=== PATIENT | female | born 1955 | race Caucasian/White ===

== ENCOUNTER 2019-06-07 08:25 | Emergency (ER) | payer OTHER ==
[2019-06-07 09:04] VITALS: TEMP 98
[2019-06-07] MEDS ORDERED: HYDROcodone/APAP 10-325MG 1 EACH TAB PO ONE (09:11)
--- NOTE | 2019-06-07 09:13 | ED ---
General Adult HPI - General Chief complaint: Neck Pain/Injury Stated complaint: Mental Health Time Seen by Provider: 06/07/19 08:48 Source: patient, EMS, RN notes reviewed Mode of arrival: EMS Limitations: no limitations - History of Present Illness Initial comments: 63-year-old female presented to the emergency room today with a chief complaint of needing pain medication. Patient does admit that she has history of chronic back pain. She had 2 surgeries in the past. She states that she is on Eden that is given to her by her family doctor. She states that her condition was told by her neighbor. She states that the police were at her apartment today and did speak with her neighbors well. She was advised come here to the emergency room to see if she'll get pain medication. Patient also admits that she has some pain to her legs. She states that she had pain similar to this in the past when she potassium was low. She took potassium supplements but is no longer on this anymore. Patient denies any other complaints or symptoms. Patient denies any recent fever, chills, shortness of breath, chest pain, back pain, abdominal pain, nausea or vomiting, numbness or tingling, headaches or visual changes, or any other complaints. - Related Data Home Medications Medication Instructions Recorded Confirmed Gabapentin 600 mg PO TID 06/07/19 06/07/19 Hydrocodone/Acetaminophen [Eden 1 tab PO TID 06/07/19 06/07/19 10-325] Multivitamins, Thera [Multivitamin 1 tab PO DAILY 06/07/19 06/07/19 (formulary)] levETIRAcetam [Keppra] 250 mg PO TID 06/07/19 06/07/19 Allergies Allergy/AdvReac Type Severity Reaction Status Date / Time naproxen Allergy Rash/Hives Verified 06/07/19 09:05 tramadol [From Ultram] Allergy Rash/Hives Verified 06/07/19 09:05 Review of Systems ROS Statement: Those systems with pertinent positive or pertinent negative responses have been documented in the HPI. ROS Other: All systems not noted in ROS Statement are negative. Past Medical History Past Medical History: Osteoarthritis (OA) Additional Past Medical History / Comment(s): neck pain History of Any Multi-Drug Resistant Organisms: None Reported Additional Past Surgical History / Comment(s): neck surgery Past Psychological History: Depression Smoking Status: Former smoker Past Alcohol Use History: None Reported Past Drug Use History: None Reported General Exam - General Exam Comments Initial Comments: General: The patient is awake and alert, in no distress, and does not appear acutely ill. Eye: There is normal conjunctiva bilaterally. No signs of icterus. Ears, nose, mouth and throat: There are moist mucous membranes and no oral l esions. Neck: The neck is supple, there is no tenderness or JVD. Cardiovascular: There is a regular rate and rhythm. No murmur, rub or gallop is appreciated. Respiratory: Lungs are clear to auscultation, respirations are non-labored, breath sounds are equal. No wheezes, stridor, rales, or rhonchi. Musculoskeletal: Normal ROM, no tenderness. Strength 5/5. Sensation intact. Neurological: A&O x 3. CN II-XII intact, There are no obvious motor or sensory deficits. Coordination appears grossly intact. Speech is normal. Skin: Skin is warm and dry and no rashes or lesions are noted. Psychiatric: Cooperative, appropriate mood & affect, normal judgment. Limitations: no limitations Course Vital Signs 06/07/19 06/07/19 08:35 09:45 Temperature 98.0 F Pulse Rate 65 56 L Respiratory 18 20 Rate Blood Pressure 137/98 133/91 O2 Sat by Pulse 98 99 Oximetry Medical Decision Making - Medical Decision Making Patient's labs been reviewed. Her potassium is normal. At this time the patient is advised that she does need follow-up with family physician for further prescription for pain medication patient states understanding and is agreement. Patient was given one Eden here in the ER. Patient will be discharged home. - Lab Data Result diagrams: 06/07/19 09:45 06/07/19 09:45 Lab Results 06/07/19 06/07/19 Range/Units 09:45 09:45 WBC 7.0 (3.8-10.6) k/uL RBC 3.81 (3.80-5.40) m/uL Hgb 12.4 (11.4-16.0) gm/dL Hct 36.8 (34.0-46.0) % MCV 96.5 (80.0-100.0) fL MCH 32.4 (25.0-35.0) pg MCHC 33.6 (31.0-37.0) g/dL RDW 14.3 (11.5-15.5) % Plt Count 361 (150-450) k/uL Neutrophils % 68 % Lymphocytes % 21 % Monocytes % 7 % Eosinophils % 1 % Basophils % 0 % Neutrophils # 4.7 (1.3-7.7) k/uL Lymphocytes # 1.5 (1.0-4.8) k/uL Monocytes # 0.5 (0-1.0) k/uL Eosinophils # 0.1 (0-0.7) k/uL Basophils # 0.0 (0-0.2) k/uL Sodium 136 L (137-145) mmol/L Potassium 4.8 (3.5-5.1) mmol/L Chloride 99 (98-107) mmol/L Carbon Dioxide 28 (22-30) mmol/L Anion Gap 9 mmol/L BUN 13 (7-17) mg/dL Creatinine 0.67 (0.52-1.04) mg/dL Est GFR (CKD-EPI)AfAm >90 (>60 ml/min/1.73 sqM) Est GFR (CKD-EPI)NonAf >90 (>60 ml/min/1.73 sqM) Glucose 110 H (74-99) mg/dL Calcium 10.2 (8.4-10.2) mg/dL Disposition Clinical Impression: Chronic neck pain Disposition: HOME SELF-CARE Condition: Good Instructions (If sedation given, give patient instructions): Chronic Pain (ED) Additional Instructions: Please follow-up with family doctor over the next 2 days for further pain medications. Return here to the emergency room for any symptoms increase or worsen or for any other concerns. Is patient prescribed a controlled substance at d/c from ED?: No Referrals: Dallin Jarquin MD [Primary Care Provider] - 1-2 days Time of Disposition: 11:03
[2019-06-07 09:55] VITALS: BP 133/91; PULSE 56; RESP 20
[2019-06-07 10:06] LABS: Basophils % (A) 0 %; Eosinophils # (A) 0.1 k/uL (0-0.7); Eosinophils % (A) 1 %; HCT 36.8 % (34.0-46.0); HGB 12.4 gm/dL (11.4-16.0); Lymphocytes # (A) 1.5 k/uL (1.0-4.8); Lymphocytes % (A) 21 %; MCH 32.4 pg (25.0-35.0); MCHC 33.6 g/dL (31.0-37.0); MCV 96.5 fL (80.0-100.0); Mean Platelet Volume 6.7; Monocytes # (A) 0.5 k/uL (0-1.0); Monocytes % (A) 7 %; Neutrophils # (A) 4.7 k/uL (1.3-7.7); Neutrophils % (A) 68 %; Platelet Count 361 k/uL (150-450); RBC 3.81 m/uL (3.80-5.40); RDW 14.3 % (11.5-15.5)
[2019-06-07 10:16] LABS: African American GFR (CKD) >90 (>60 ml/min/1.73 sqM); Anion Gap 9 mmol/L; Blood Urea Nitrogen 13 mg/dL (7-17); Calcium 10.2 mg/dL (8.4-10.2); Carbon Dioxide 28 mmol/L (22-30); Chloride 99 mmol/L (98-107); Glucose 110 mg/dL (74-99); Potassium 4.8 mmol/L (3.5-5.1); Sodium 136 mmol/L (137-145)
[2019-06-07 11:20] LABS: Appearance,Urine Clear (Clear); Bacteria,Urine Rare /hpf; Bilirubin,Urine Negative (Negative); Blood,Urine Negative (Negative); Color,Urine Yellow; Glucose,Urine (UA) Negative (Negative); Ketones,Urine Negative (Negative); Leukocyte Esterase,Urine Small (Negative); Mucus,Urine Rare /hpf; Nitrite,Urine Negative (Negative); Protein,Urine Negative (Negative); RBC,Urine 1 /hpf (0-5); Specific Gravity,Urine 1.011 (1.001-1.035); Squamous Epithelial Cell,Urine 1 /hpf (0-4); Urobilinogen,Urine <2.0 mg/dL (<2.0); WBC,Urine 2 /hpf (0-5)
[2019-06-07 11:22] LABS: Cocaine Screen,Urine Not Detected (NotDetected); Opiate Screen,Urine Detected (NotDetected); Phencyclidine Screen,Urine Not Detected (NotDetected); Urn Cannabinoid Scrn Not Detected (NotDetected)
[2019-06-07 11:23] LABS: Amphetamine Screen,Urine Not Detected (NotDetected); Barbiturate Screen,Urine Not Detected (NotDetected); Benzodiazepines Screen,Urine Not Detected (NotDetected); Methadone Screen, Urine Not Detected (NotDetected); Oxycodone Screen, Urine Not Detected (NotDetected); Tricyclic Antidepressant,Urine Not Detected (NotDetected)
== END 2019-06-07 11:40 | disposition home or self-care (01) ==
LOC: EC 08:25
DX: G89.29 Other chronic pain (principal); M54.2 Cervicalgia; Z79.899 Other long term (current) drug therapy; Z88.5 Allergy status to narcotic agent; Z88.6 Allergy status to analgesic agent; Z87.891 Personal history of nicotine dependence
CPT/HCPCS: 36415; 80048; 80306; 81001; 85025; 93005; 99283; 99284

== ENCOUNTER 2019-06-07 21:15 | Emergency (ER) | payer OTHER ==
[2019-06-07] MEDS ORDERED: IBUPROFEN 600 MG TAB PO STA (21:36)
[2019-06-07] MEDS ORDERED: ACETAMINOPHEN TAB 325 MG TAB PO STA (21:39)
--- NOTE | 2019-06-07 21:41 | ED ---
Lower Extremity Injury HPI - General Chief Complaint: Extremity Injury, Lower Stated Complaint: recheck - leg pain Time Seen by Provider: 06/07/19 21:25 Source: patient Mode of arrival: ambulatory Limitations: no limitations - History of Present Illness Initial Comments: 63-year-old female patient presents to the emergency department today for evaluation of leg pain and cramping. Patient was seen and evaluated here this morning for mental health. She was discharged home was unable to find a ride so she has been walking around the hospital since. Patient states her legs hurt due to her walking. She does report she has been taking [id number] potassium supplements because her doctor told her her potassium was low. She believes this may be contributing to her leg pain. She denies any leg swelling. Denies any known injury. Patient denies any recent rash, fever, chills, shortness breath, abdominal pain, nausea, vomiting, diarrhea, constipation, back pain, numbness, tingling, dizziness, weakness, hematuria, dysuria, urinary urgency, urinary frequency, headache, visual changes, or any other complaints. - Related Data Home Medications Medication Instructions Recorded Confirmed Gabapentin 600 mg PO TID 06/07/19 06/07/19 Hydrocodone/Acetaminophen [[place] 1 tab PO TID 06/07/19 06/07/19 10-325] Multivitamins, Thera [Multivitamin 1 tab PO DAILY 06/07/19 06/07/19 (formulary)] levETIRAcetam [Keppra] 250 mg PO TID 06/07/19 06/07/19 Allergies Allergy/AdvReac Type Severity Reaction Status Date / Time naproxen Allergy Rash/Hives Verified 06/07/19 21:23 tramadol [From Ultram] Allergy Rash/Hives Verified 06/07/19 21:23 Review of Systems ROS Statement: Those systems with pertinent positive or pertinent negative responses have been documented in the HPI. ROS Other: All systems not noted in ROS Statement are negative. Past Medical History Past Medical History: Osteoarthritis (OA) Additional Past Medical History / Comment(s): neck pain History of Any Multi-Drug Resistant Organisms: None Reported Additional Past Surgical History / Comment(s): neck surgery Past Psychological History: Depression Smoking Status: Former smoker Past Alcohol Use History: None Reported Past Drug Use History: None Reported General Exam Limitations: no limitations General appearance: alert, in no apparent distress, other (Physical well- developed, well-nourished adult female patient in no acute distress. Vital signs upon presentation are temperature 97.8F, pulse 78, respirations 18, blood pressure 122/86, pulse ox 99% on room air.) Respiratory exam: Present: normal lung sounds bilaterally. Absent: respiratory distress, wheezes, rales, rhonchi, stridor Cardiovascular Exam: Present: regular rate, normal rhythm, normal heart sounds. Absent: systolic murmur, diastolic murmur, rubs, gallop, clicks Extremities exam: Present: normal inspection, full ROM, normal capillary refill, other (Lower extremities are pink, warm, dry. Cap refills less than 3 seconds. Pedal and posttibial pulses are 2+ and equal bilaterally. There is no swe lling.). Absent: tenderness, pedal edema, joint swelling, calf tenderness Neurological exam: Present: alert, oriented X3, CN II-XII intact, normal gait Psychiatric exam: Present: normal affect, normal mood Skin exam: Present: warm, dry, intact, normal color. Absent: rash Course Vital Signs 06/07/19 06/07/19 21:19 21:48 Temperature 97.8 F 98 F Pulse Rate 78 77 Respiratory 18 16 Rate Blood Pressure 122/86 125/84 O2 Sat by Pulse 99 100 Oximetry Medical Decision Making - Medical Decision Making 63-year-old female patient presented to the emergency department today for evaluation of bilateral leg pain. Physical examination is unremarkable. Patient is concerned her potassium may be low causing leg pain. Labs reviewed from this morning and potassium was normal at 4.8. Patient be given Tylenol and discharged home to follow-up with her primary care physician for recheck. Return parameters were discussed in detail. She verbalizes understanding and agrees with this plan. Disposition Clinical Impression: Leg pain Disposition: HOME SELF-CARE Condition: Good Instructions (If sedation given, give patient instructions): Leg Pain (ED) Additional Instructions: Increase fluids. Rest. Take Tylenol Motrin for pain control. I'll pursue primary care physician for recheck in 1-2 days. Return to the emergency department immediately for any new, worsening, or concerning symptom. Is patient prescribed a controlled substance at d/c from ED?: No Referrals: Dallin Jarquin MD [Primary Care Provider] - 1-2 days Time of Disposition: 21:40
[2019-06-07 21:49] VITALS: BP 125/84; PULSE 77; RESP 16; TEMP 98
== END 2019-06-07 21:52 | disposition home or self-care (01) ==
LOC: EC 21:15
DX: M79.605 Pain in left leg (principal); M79.604 Pain in right leg; M19.90 Unspecified osteoarthritis, unspecified site; Z87.891 Personal history of nicotine dependence; Z79.891 Long term (current) use of opiate analgesic; Z79.899 Other long term (current) drug therapy; Z88.5 Allergy status to narcotic agent; Z88.6 Allergy status to analgesic agent; Z53.8 Procedure and treatment not carried out for other reasons
CPT/HCPCS: 99283

== ENCOUNTER 2019-06-12 17:41 | Emergency (ER) | payer OTHER ==
[2019-06-12 17:57] VITALS: RESP 18
[2019-06-12] MEDS ORDERED: levETIRAcetam 250 MG TAB PO STA (18:32)
[2019-06-12] MEDS ORDERED: HYDROcodone/APAP 5-325MG 1 EACH TAB PO STA (18:32)
[2019-06-12] MEDS ORDERED: ACET/COD 300 MG/30 MG STARTER PACK 6 TAB BTL PO STA (18:36)
--- NOTE | 2019-06-12 18:36 | ED ---
General Adult HPI - General Chief complaint: Psychiatric Symptoms Stated complaint: MENTAL HEALTH Time Seen by Provider: 06/12/19 18:01 Source: patient, EMS Mode of arrival: EMS Limitations: altered mental status, physical limitation - History of Present Illness Initial comments: 63-year-old female patient with past medical history significant for chronic leg, neck, and back pain. Patient states that she was supposed to get her Mccarr and gabapentin refilled on 05/27/2019 however her physician of her symptoms medication to the pharmacy. Patient states she has been having increasing pain since then. [place] DNR to call an ambulance for her. Patient states that she just needs pain medication. S he denies any new symptoms, states she has had this pain for many years. She has been taking the pain medications since 2005. She states that she is also out of her Keppra. She denies any seizure activity. Patient denies any recent rash, fever, chills, shortness breath, chest pain, abdominal pain, nausea, vomiting, diarrhea, constipation, back pain, numbness, tingling, dizziness, weakness, hematuria, dysuria, urinary urgency, urinary frequency, headache, visual changes, or any other complaints. She denies any suicidal or homicidal ideation. - Related Data Home Medications Medication Instructions Recorded Confirmed Hydrocodone/Acetaminophen [Mccarr 1 tab PO Q4-6H PRN 06/07/19 06/12/19 10-325] levETIRAcetam [Keppra] 250 mg PO TID 06/07/19 06/12/19 Albuterol Inhaler [Ventolin Hfa 1 - 2 puff INHALATION RT-Q4H PRN 06/12/19 06/12/19 Inhaler] Gabapentin [Neurontin] 300 mg PO TID 06/12/19 06/12/19 Omeprazole [PriLOSEC] 20 mg PO DAILY 06/12/19 06/12/19 clonazePAM [KlonoPIN] 0.5 mg PO TID 06/12/19 06/12/19 Previous Rx's Medication Instructions Recorded levETIRAcetam [Keppra] 250 mg PO TID #90 tablet 06/12/19 Allergies Allergy/AdvReac Type Severity Reaction Status Date / Time naproxen Allergy Rash/Hives Verified 06/12/19 18:20 tramadol [From Ultram] Allergy Rash/Hives Verified 06/12/19 18:20 Review of Systems ROS Statement: Those systems with pertinent positive or pertinent negative responses have been documented in the HPI. ROS Other: All systems not noted in ROS Statement are negative. Past Medical History Past Medical History: Osteoarthritis (OA) Additional Past Medical History / Comment(s): neck pain History of Any Multi-Drug Resistant Organisms: None Reported Additional Past Surgical History / Comment(s): neck surgery Past Psychological History: Depression Smoking Status: Former smoker Past Alcohol Use History: None Reported Past Drug Use History: None Reported General Exam Limitations: altered mental status, physical limitation General appearance: alert, in no apparent distress, other (This is a well- developed, well-nourished adult female patient in no acute distress. Vital signs upon presentation are temperature 98.7F, pulse 62, respirations 18, blood pressure 137/80, pulse ox 99% on room air.) Eye exam: Present: normal appearance, PERRL, EOMI. Absent: scleral icterus, conjunctival injection, periorbital swelling ENT exam: Present: normal exam, normal oropharynx, mucous membranes moist Respiratory exam: Present: normal lung sounds bilaterally. Absent: respiratory distress, wheezes, rales, rhonchi, stridor Cardiovascular Exam: Present: regular rate, normal rhythm, normal heart sounds. Absent: systolic murmur, diastolic murmur, rubs, gallop, clicks GI/Abdominal exam: Present: soft, normal bowel sounds. Absent: distended, tenderness, guarding, rebound, rigid Neurological exam: Present: alert, oriented X3, CN II-XII intact Psychiatric exam: Present: normal affect, normal mood Skin exam: Present: warm, dry, intact, normal color. Absent: rash Course Vital Signs 06/12/19 17:54 Temperature 98.7 F Pulse Rate 62 Respiratory 18 Rate Blood Pressure 137/80 O2 Sat by Pulse 99 Oximetry Medical Decision Making - Medical Decision Making 63-year-old female patient presents to the emergency department today for evaluation of increased pain to her neck, back, legs. Patient states this is chronic pain and she's been out of her medication since the beginning of the month. Patient states that she is here seeking pain medication. She will be given a dose of pain medication here in the emergency department. A starter pack for Tylenol with codeine. She is instructed to use these sparingly. She will be given a prescription refill of her Keppra. She is instructed to follow- up with her primary care physician for recheck as soon as possible. She is ad vised she will receive no further pain medications from the emergency department for chronic pain. She verbalizes understanding and agrees with this plan. Disposition Clinical Impression: Neck pain, Leg pain, Drug-seeking behavior Disposition: HOME SELF-CARE Condition: Good Instructions (If sedation given, give patient instructions): Chronic Pain (ED) Additional Instructions: Follow-up with your primary care physician for refills of your medications. Return to the emergency department immediately for any new, worsening, or concerning symptoms. Prescriptions: levETIRAcetam [Keppra] 250 mg PO TID #90 tablet Is patient prescribed a controlled substance at d/c from ED?: No Referrals: Dallin Jarquin MD [Primary Care Provider] - 1-2 days Time of Disposition: 18:35
[2019-06-12 18:56] VITALS: BP 127/63; PULSE 63; TEMP 98.2
== END 2019-06-12 19:08 | disposition home or self-care (01) ==
LOC: EC 17:41
DX: M54.2 Cervicalgia (principal); M79.606 Pain in leg, unspecified; G89.29 Other chronic pain; Z76.5 Malingerer [conscious simulation]; F32.9 Major depressive disorder, single episode, unspecified; Z79.899 Other long term (current) drug therapy; Z88.5 Allergy status to narcotic agent; Z88.6 Allergy status to analgesic agent; Z87.891 Personal history of nicotine dependence
CPT/HCPCS: 82075; 99283

== ENCOUNTER 2019-06-13 13:42 | Emergency (ER) | payer OTHER ==
[2019-06-13 13:54] VITALS: RESP 18
--- NOTE | 2019-06-13 15:12 | ED ---
Psych HPI - General Chief Complaint: Psychiatric Symptoms Stated Complaint: Mental health Time Seen by Provider: 06/13/19 13:58 Source: patient, police, RN notes reviewed, old records reviewed Mode of arrival: ambulatory - History of Present Illness Initial Comments: This is a 61-year-old female who is brought in the ER for evaluation. Patient's brought in the ER for evaluation of psychiatric illness. At this point patient is difficult historian. Patient's brought in by PD petitioning for psychiatric evaluation secondary to unsafe living condition inability take care of herself. MD Complaint: altered mental status, other (Psychotic) -: unknown Associated Psychiatric Symptoms: delusions History of same: Yes Quality: constant, getting worse Context: not taking psychiatric medications, significant life stressor Associated Symptoms: denies other symptoms Treatments Prior to Arrival: placed on mental health hold If Self Harm: has plan - Related Data Home Medications Medication Instructions Recorded Confirmed Hydrocodone/Acetaminophen [Shirley 1 tab PO Q4-6H PRN 06/07/19 06/13/19 10-325] levETIRAcetam [Keppra] 250 mg PO TID 06/07/19 06/13/19 Albuterol Inhaler [Ventolin Hfa 1 - 2 puff INHALATION RT-Q4H PRN 06/12/19 06/13/19 Inhaler] Gabapentin [Neurontin] 300 mg PO TID 06/12/19 06/13/19 Omeprazole [PriLOSEC] 20 mg PO DAILY 06/12/19 06/13/19 clonazePAM [KlonoPIN] 0.5 mg PO TID 06/12/19 06/13/19 Previous Rx's Medication Instructions Recorded levETIRAcetam [Keppra] 250 mg PO TID #90 tablet 06/12/19 Allergies Allergy/AdvReac Type Severity Reaction Status Date / Time naproxen Allergy Rash/Hives Verified 06/13/19 13:57 tramadol [From Ultram] Allergy Rash/Hives Verified 06/13/19 13:57 Review of Systems ROS Statement: Those systems with pertinent positive or pertinent negative responses have been documented in the HPI. ROS Other: All systems not noted in ROS Statement are negative. Past Medical History Past Medical History: Osteoarthritis (OA) Additional Past Medical History / Comment(s): neck pain History of Any Multi-Drug Resistant Organisms: None Reported Additional Past Surgical History / Comment(s): neck surgery Past Psychological History: Depression Smoking Status: Former smoker Past Alcohol Use History: None Reported Past Drug Use History: None Reported General Exam Limitations: no limitations General appearance: alert, in no apparent distress Head exam: Present: atraumatic, normocephalic, normal inspection Eye exam: Present: normal appearance, PERRL, EOMI. Absent: scleral icterus, conjunctival injection, periorbital swelling ENT exam: Present: normal exam, mucous membranes moist Neck exam: Present: normal inspection. Absent: tenderness, meningismus, lymphadenopathy Respiratory exam: Present: normal lung sounds bilaterally. Absent: respiratory distress, wheezes, rales, rhonchi, stridor Cardiovascular Exam: Present: regular rate, normal rhythm, normal heart sounds. Absent: systolic murmur, diastolic murmur, rubs, gallop, clicks GI/Abdominal exam: Present: soft, normal bowel sounds. Absent: distended, tenderness, guarding, rebound, rigid Extremities exam: Present: normal inspection, full ROM, normal capillary refill. Absent: tenderness, pedal edema, joint swelling, calf tenderness Back exam: Present: normal inspection Neurological exam: Present: alert, oriented X3, CN II-XII intact Psychiatric exam: Present: normal affect, normal mood Skin exam: Present: warm, dry, intact, normal color. Absent: rash Course Vital Signs 06/13/19 06/13/19 13:52 16:32 Temperature 98.0 F 98.2 F Pulse Rate 60 61 Respiratory 18 18 Rate Blood Pressure 112/72 103/67 O2 Sat by Pulse 99 100 Oximetry - Reevaluation(s) Reevaluation #1: 06/13/19 15:36 Medical clear for psychiatric evaluation Medical Decision Making - Medical Decision Making 61 female the ER for evaluation. Patient will be admitted for psychiatric evaluation and management acute psychosis Disposition Clinical Impression: Drug-induced psychotic disorder, Acute psychosis, Psychosis Disposition: TRANSFER TO PSYCH HOSP/UNIT Condition: Fair Is patient prescribed a controlled substance at d/c from ED?: No Referrals: Dallin Jarquin MD [Primary Care Provider] - 1-2 days
[2019-06-13 19:25] LABS: Amphetamine Screen,Urine Not Detected (NotDetected); Barbiturate Screen,Urine Not Detected (NotDetected); Benzodiazepines Screen,Urine Not Detected (NotDetected); Cocaine Screen,Urine Not Detected (NotDetected); Methadone Screen, Urine Not Detected (NotDetected); Opiate Screen,Urine Detected (NotDetected); Oxycodone Screen, Urine Not Detected (NotDetected); Phencyclidine Screen,Urine Not Detected (NotDetected); Tricyclic Antidepressant,Urine Not Detected (NotDetected); Urn Cannabinoid Scrn Not Detected (NotDetected)
[2019-06-13 20:01] LABS: Basophils % (A) 0 %; Eosinophils # (A) 0.2 k/uL (0-0.7); Eosinophils % (A) 3 %; HCT 36.9 % (34.0-46.0); Lymphocytes # (A) 1.6 k/uL (1.0-4.8); Lymphocytes % (A) 20 %; MCH 31.4 pg (25.0-35.0); MCHC 32.5 g/dL (31.0-37.0); MCV 96.6 fL (80.0-100.0); Mean Platelet Volume 6.7; Monocytes # (A) 0.5 k/uL (0-1.0); Monocytes % (A) 6 %; Neutrophils # (A) 5.8 k/uL (1.3-7.7); Neutrophils % (A) 70 %; Platelet Count 312 k/uL (150-450); RBC 3.82 m/uL (3.80-5.40); RDW 13.1 % (11.5-15.5); WBC 8.2 k/uL (3.8-10.6)
[2019-06-13 20:09] LABS: ALT 16 U/L (9-52); AST 19 U/L (14-36); African American GFR (CKD) >90 (>60 ml/min/1.73 sqM); Albumin 4.5 g/dL (3.5-5.0); Alkaline Phosphatase 62 U/L (38-126); Anion Gap 9 mmol/L; Blood Urea Nitrogen 12 mg/dL (7-17); Calcium 10.4 mg/dL (8.4-10.2); Carbon Dioxide 30 mmol/L (22-30); Chloride 96 mmol/L (98-107); Glucose 135 mg/dL (74-99); Non-African American GFR(CKD) >90 (>60 ml/min/1.73 sqM); Sodium 135 mmol/L (137-145); Total Bilirubin 0.5 mg/dL (0.2-1.3); Total Protein 7.2 g/dL (6.3-8.2)
[2019-06-13] MEDS ORDERED: GABAPENTIN 300 MG CAP PO SCH (22:00)
[2019-06-13] MEDS ORDERED: clonazePAM 0.5 MG TAB PO SCH (22:00)
[2019-06-13] MEDS ORDERED: levETIRAcetam 250 MG TAB PO SCH (23:00)
[2019-06-13 23:23] VITALS: BP 125/68; PULSE 51; TEMP 98.7
[2019-06-14] MEDS ORDERED: PANTOPRAZOLE 40 MG TABLET PO SCH (07:30)
== END 2019-06-14 00:06 ==
LOC: EC 13:42
DX: F19.959 Other psychoactive substance use, unspecified with psychoactive substance-induced psychotic disorder, unspecified (principal); F23 Brief psychotic disorder; F32.9 Major depressive disorder, single episode, unspecified; Z79.899 Other long term (current) drug therapy; Z88.5 Allergy status to narcotic agent; Z88.6 Allergy status to analgesic agent; Z87.891 Personal history of nicotine dependence
CPT/HCPCS: 36415; 80053; 80306; 82075; 85025; 99285